=== PATIENT | female | born 1950 | race Two or more races ===

== ENCOUNTER → 2021-07-23 12:56 | Outpatient (BNVA) | payer OTHER, SELFPAY | PROVIDERS: PCP Physician Assistant | DX: N20.0 Calculus of kidney (principal) | CPT/HCPCS: 99202 ==

== ENCOUNTER → 2021-10-09 13:34 | Outpatient (BNVA) | payer OTHER, SELFPAY | PROVIDERS: PCP Physician Assistant | DX: N20.0 Calculus of kidney (principal) | CPT/HCPCS: Q3014 ==

== ENCOUNTER 2021-10-15 12:04 | Day surgery (SDC) | payer OTHER, SELFPAY ==
[2021-10-09 16:37] VITALS: BMI 37.3
--- NOTE | 2021-10-12 10:38 | P.CONAN_ITS ---
Documented by User: Joselin Schofield NP 10/12/21 10:47 HPI - Anesthesia Eval Consult details Narrative: 71yo F for Left Cystoscopy, Ureteroroscopy, Retro, Laser,poss stent ? plavix. Unable to reach pt preop. No clear etiology for rx in PMHx from urology. [facility] Active Problems Active Problems: All Active Problems (Updated 10/10/21 @ 14:20 by Irlanda Fernandez, RN) Renal calculi (Acute) Past Medical History Medical History Arthritis Hyperlipidemia Low back pain Renal calculi Vertigo Social History Social History Patient Tobacco Use Status: Former Tobacco user Quit Date: years&years ago Use of substances other than those prescribed or required for medical reasons: No Are you DNR?: No Advance Directives: No Advance Directives Information Provided: Yes Meds Allergies Allergy/AdvReac Type Severity Reaction Status Date / Time No Known Allergies Allergy Verified 10/15/21 13:27 Home Medications Medication Instructions Recorded Confirmed Last Taken Type insulin syringe-needle U-100 1 mL #100 ea 07/23/21 Unknown History 29 gauge x 7/16 simvastatin 10 mg tablet 10 mg PO BEDTIME 07/23/21 Unknown History calcium carbonate 600 mg-vitamin 1 tab PO BID 10/09/21 Unknown History D3 10 mcg (400 unit) tablet insulin syringe-needle U-100 1 mL #100 ea 10/09/21 Unknown History 30 gauge x 7/16 loratadine 10 mg tablet 10 mg PO DAILY PRN allergies 10/09/21 Unknown History Exam Exam Date and Time: October 12, 2021 1038 Height,Weight and Vital Signs: Height 4 ft 11 in Weight 83.915 kg Assessment and Plan Assessment Anesthesia Assessment: Chart Reviewed Documented by User: Homar Jernigan MD 10/15/21 18:10 HPI - Anesthesia Eval Consult details Narrative: 71yo F for Left Cystoscopy, Ureteroroscopy, Retro, Laser,poss stent AGUILAR , back pain with radiation to LE . tingling and numbness . vertigo PMFSH Past Medical History Medical History Arthritis Hyperlipidemia Low back pain Renal calculi Vertigo Functional capacity: independent ambulation Family History Family history of problems with anesthesia: No Surgical History History of Problems with Anesthesia: No Social History Social History Patient Tobacco Use Status: Former Tobacco user Quit Date: years&years ago Use of substances other than those prescribed or required for medical reasons: No Are you DNR?: No Advance Directives: No Advance Directives Information Provided: Yes Meds Allergies Allergy/AdvReac Type Severity Reaction Status Date / Time No Known Allergies Allergy Verified 10/15/21 13:27 Home Medications Medication Instructions Recorded Confirmed Last Taken Type insulin syringe-needle U-100 1 mL #100 ea 07/23/21 Unknown History 29 gauge x 7/16 simvastatin 10 mg tablet 10 mg PO BEDTIME 07/23/21 Unknown History calcium carbonate 600 mg-vitamin 1 tab PO BID 10/09/21 Unknown History D3 10 mcg (400 unit) tablet insulin syringe-needle U-100 1 mL #100 ea 10/09/21 Unknown History 30 gauge x 7/16 loratadine 10 mg tablet 10 mg PO DAILY PRN allergies 10/09/21 Unknown History Exam Airway Mallampati Class: III TM Dist: >3cm Neck ROM: Full Denture: Upper and Lower Loose/Missing/Broken Teeth: Yes Heart: S1,S2 Lungs: b/l breath sounds Assessment and Plan Assessment Anesthesia Assessment: Anesthesia Plan Discussed Final Anesthetic Review Family History of Problems with Anesthesia: No History of Problems with Anesthesia: No NPO: Yes ASA Class: III Final Preanesthetic Review: Meds/Allgs Chart Reviewed, Consent Obtained/Reviewed and Anes Risks/Benef Reviewed Patient Risk: Intermediate Procedure Risk: Intermediate Anesthetic Plan Anesthetic Plan: GA Disposition: Standard PACU
[2021-10-15] VITALS (7 sets, daily range): BP systolic 118–174; BP diastolic 62–95; PULSE 67–82; RESP 15–17; TEMP 36.7; O2SAT 95–99; BMI 37.1
--- NOTE | ~2021-10-15 | FL_ITS ---
EXAMINATION: XR FLUOROSCOPY WITH IMAGES CLINICAL INFORMATION: Urinary tract calculus COMPARISON: Lumbar spine radiographs 12/05/2020 ([facility]). TECHNIQUE: Fluoroscopy performed by Dr. Gage Arthur. Fluoroscopy time: 2.8 minutes. Cumulative Dose: 81.1 mGy. DAP: 22.1 Gy-cm2. Images: 3. FINDINGS: There is an oval filling defect in the central left collecting system likely a calculus. Final image shows distal end of a left ureteral stent in position. FL/FL guidance in OR IMPRESSION: Fluoroscopy for urologic procedure.
--- NOTE | 2021-10-15 12:56 | PC.NURSE ---
pt denies being diabetic, does not match hx. states her niece as same name, same age and same birthday & only the last 4 digits of ss# are different. checked in registration no pt with same name registered. and last 4 of ss# matches [id number] of registered. pharmacy not filled meds. a&ox4
[2021-10-15] MEDS: levoFLOXacin/D5W 500 MG/100 ML PIGGYBACK 100 MG IV (13:49)
--- NOTE | 2021-10-15 15:45 | MHC.SHP ---
Pre-Procedural Eval Section A Date of Service: 10/15/21 The patient is an INPATIENT: No Changes since office visit: No Cold of Flu in the past 2 weeks, No New Medical Problems, No Changes in Medication and No Patient answered all questions The History & Physical has been completed within 30 days and I have reviewed it.: Yes Section B Chief Complaint: Calculus of kidney Allergies: Allergies Allergy/AdvReac Type Severity Reaction Status Date / Time No Known Allergies Allergy Verified 10/15/21 13:27 Review of Systems Sugical H&P ROS: Negative: Constitution, Cardiovascular, Respiratory, Neurological, Psychiatric, Hem-Onc, Allergic/Immunologic, Gastrointestinal, Genitourinary, Musculoskeletal, Integumentary, Endocrine and Eyes/Ears/Nose/Throat Exam Surgical H&P Exam: Normal: HEENT, Normal: Heart, Normal: Lungs, Normal: Extremities, Normal: Abdomen, Normal: Skin and Normal: Neurological Plan Diagnosis/Plan: Unchanged (cystocopy, left retrograde, felxible ureteroscopy, laser and stent) I have reviewed the history and physical and performed a pertinent physical examination on my patient. No changes have occurred unless specified.
--- NOTE | 2021-10-15 17:54 | P.OP_ITS ---
Operative Note Operative Note Date of Service: 10/15/21 Narrative: PreOperative Diagnosis: left renal stone 1 cm Post Operative Diagnosis: left renal stone 1 cm Procedure: - cystoscopy, left retrograde - left dilatation of ureteric orifice under fluoroscopy - left ureteroscopy, laser lithotripsy, stone basketing - left stent placement Surgeon: Dr Gage Arthur Anesthesia: General Indications for procedure: left 1 cm stone with pain Procedure: After informed consent was verified patient was brought to the operating placed in supine position. Anesthesia was administered per protocol. Patient was placed in modified dorsal lithotomy position and prepped and draped in a sterile fashion. Safety pause time-out and side of surgery confirmed. Antibiotics confirmed. 22 [place] cystoscope was inserted per urethra. Bladder was normal in its entirety. Both ureteric orifices were in normal position. The left ureteric orifice was cannulated and a retrograde examination was performed. filling defect within renal pelvis . A Sensor guidewire was placed up to the level of the renal pelvis under fluoroscopy. The rigid cystoscope was removed and the inner cannula of ureteric access sheath was used under fluoroscopy to dilate the ureteric orifice. The ureteric access sheath was placed and the inner cannula with access wire removed. The digital flexible ureteral scope was placed. the stone was encountered in using dusting settings broken into many small pieces. This took approximately 15 minutes. The access sheath has attached suction and we were able to remove debris, dust, blood from the endoscopic field. Once this part was complete within looked in the lower pole with there was stone debris. This was broken into small pieces using a combination of the hammer and dusting settings. The scope was removed and a 4 [place]alan open-ended catheter placed in used to flush the kidney. This sequence was repeated a number of times to remove as much debris as possible. 0 tip basket was used to remove fragments. A 6 Guatemalan by Twenty-two cm double-J stent was placed into the renal pelvis and bladder under a combination of fluoroscopy and direct visualization. The bladder was emptied. The patient tolerated the procedure well and was extubated in the operating room, and transferred in stable condition to the recovery area. Pathology: stone fragments Drains: double-J stent
== END 2021-10-15 18:47 | disposition home or self-care (01) ==
PROVIDERS: PCP Physician Assistant; Visit Provider Urology
PROC: (CPT 52356; principal; 2021-10-15 13:20)
DX: N20.0 Calculus of kidney (principal); Z87.442 Personal history of urinary calculi; E78.5 Hyperlipidemia, unspecified; R42 Dizziness and giddiness; G47.33 Obstructive sleep apnea (adult) (pediatric); Z87.891 Personal history of nicotine dependence
CPT/HCPCS: 52356; 52352; 82365; 88300; C1758; C1769; C2617; J1956; J2405; J2550; J3010; Q9967

== ENCOUNTER → 2021-10-23 13:25 | Outpatient (BNVA) | payer OTHER, SELFPAY | PROVIDERS: PCP Physician Assistant; Visit Provider Urology | DX: N20.0 Calculus of kidney (principal); N39.0 Urinary tract infection, site not specified; N30.20 Other chronic cystitis without hematuria; R33.9 Retention of urine, unspecified; N95.2 Postmenopausal atrophic vaginitis; Z46.6 Encounter for fitting and adjustment of urinary device | CPT/HCPCS: 52310; 99212 ==

== ENCOUNTER 2022-01-18 13:26 | Outpatient (REF) | payer OTHER, SELFPAY ==
--- NOTE | ~2022-01-18 | US_ITS ---
EXAMINATION: US RETROPERITONEAL LIMITED (RENAL ONLY) CLINICAL INFORMATION: Calculus of kidney. COMPARISON: Ultrasound kidneys and bladder 12/05/2020. TECHNIQUE: Real-time imaging of the kidneys. FINDINGS: RIGHT KIDNEY: 10.9 x 5.5 x 5.4 cm (SAG x AP x TRV). The kidney is normal in size, contour, and echogenicity. Renal cortical thickness is normal. No hydronephrosis. At the lower pole, a 3 mm nonobstructing calculus is seen, with twinkle artifact. At the interpolar aspect, a 1.0 cm maximal diameter anechoic, simple cyst is seen. At the lower pole, a 1.0 cm maximal diameter anechoic, simple cyst is seen. LEFT KIDNEY: 11.9 x 5.9 x 5.0 cm (SAG x AP x TRV). The kidney is normal in size, contour, and echogenicity. Renal cortical thickness is normal. No definite calculi or focal parenchymal lesions. No hydronephrosis. US/US renal BI IMPRESSION: 1. A 3 mm nonobstructing right renal calculus is seen. No definite left renal calculus is seen. No hydronephrosis is seen bilaterally. 2. There are simple, benign right renal cysts, for which no imaging follow-up is recommended.
== END 2022-01-18 13:27 | disposition home or self-care (01) ==
LOC: HO.US 13:26
PROVIDERS: Visit Provider Urology
DX: N20.0 Calculus of kidney (principal)
CPT/HCPCS: 76775